=== PATIENT | female | born 1990 | race African-American/Black ===

== ENCOUNTER 2016-06-28 17:08 | Emergency (ER) | payer MEDICAID, OTHER ==
[~2016-06-28] VITALS: Ht 170.2 cm; Wt 56.7 kg
[2016-06-28 17:38] VITALS: BP 125/73
== END 2016-06-28 17:58 | disposition home or self-care (01) ==
LOC: ER 17:10
DX: J01.10 Acute frontal sinusitis, unspecified (principal)

== ENCOUNTER 2016-08-27 11:45 | Emergency (ER) | payer OTHER ==
[~2016-08-27] VITALS: Ht 170.2 cm; Wt 61.2 kg
[2016-08-27 11:57] VITALS: BP 103/55
== END 2016-08-27 15:43 | disposition home or self-care (01) ==
LOC: ER 11:51
DX: J20.9 Acute bronchitis, unspecified (principal); J02.9 Acute pharyngitis, unspecified

== ENCOUNTER 2016-10-12 12:55 | Observation (INO) | payer OTHER ==
[2016-10-12] MEDS ORDERED: TERBUTALINE SULFATE 1 MG/ML 1ML VIAL SC ONE ×2 (13:52→14:00)
[2016-10-12] MEDS ORDERED: PREN-153 OR (14:08)
== END 2016-10-12 14:50 | disposition home or self-care (01) | DRG 566 ==
LOC: LDRP 12:55
PROVIDERS: ADMIT Specialist; ATTEND Specialist
DX: O26.893 Other specified pregnancy related conditions, third trimester (principal); M54.2 Cervicalgia; M54.9 Dorsalgia, unspecified; Z3A.30 30 weeks gestation of pregnancy
CPT/HCPCS: 59025; 76815; 81002; 96372; G0378; J3105

== ENCOUNTER 2016-10-12 15:12 | Emergency (ER) | payer OTHER ==
[~2016-10-12] VITALS: Ht 170.2 cm; Wt 61.7 kg
[~2016-10-12 15:12] MED LIST: PREN-153 OR
[2016-10-12 15:44] VITALS: BP 127/72
== END 2016-10-12 17:04 | disposition home or self-care (01) ==
LOC: ER 15:21
DX: O9A.213 Injury, poisoning and certain other consequences of external causes complicating pregnancy, third trimester (principal); S16.1XXA Strain of muscle, fascia and tendon at neck level, initial encounter; Z3A.34 34 weeks gestation of pregnancy; V48.6XXA Car passenger injured in noncollision transport accident in traffic accident, initial encounter; Y93.89 Activity, other specified; Y99.8 Other external cause status; Y92.488 Other paved roadways as the place of occurrence of the external cause
CPT/HCPCS: 72040

== ENCOUNTER 2017-01-06 09:12 | Emergency (ER) | payer OTHER ==
[~2017-01-06] VITALS: Ht 170.2 cm; Wt 61.2 kg
[2017-01-06 09:32] VITALS: BP 121/64
== END 2017-01-06 10:41 | disposition home or self-care (01) ==
LOC: ER 09:12
DX: O90.9 Complication of the puerperium, unspecified (principal); F41.1 Generalized anxiety disorder; F32.9 Major depressive disorder, single episode, unspecified; F53 Mental and behavioral disorders associated with the puerperium, not elsewhere classified

== ENCOUNTER 2020-01-30 21:15 | Emergency (ER) | payer MEDICAID, OTHER ==
[~2020-01-30] VITALS: Ht 170.2 cm; Wt 53.5 kg
[2020-01-31 01:07] VITALS: BP 121/69
== END 2020-01-31 01:26 | disposition home or self-care (01) ==
LOC: ER 21:15
DX: S83.91XA Sprain of unspecified site of right knee, initial encounter (principal); X58.XXXA Exposure to other specified factors, initial encounter; Y93.89 Activity, other specified; Y92.89 Other specified places as the place of occurrence of the external cause; Y99.8 Other external cause status
CPT/HCPCS: 73700